=== PATIENT | female | born 1990 | race Caucasian/White ===

== ENCOUNTER → 2024-08-17 13:41 | Outpatient (BNVA) | payer BC, SELFPAY | PROVIDERS: Visit Provider Nurse Practitioner Women's Health | DX: N91.2 Amenorrhea, unspecified (principal) | CPT/HCPCS: 81025 ==

== ENCOUNTER → 2024-09-06 09:25 | Outpatient (BNVA) | payer BC, SELFPAY | PROVIDERS: Visit Provider Nurse Practitioner Women's Health | DX: O26.891 Other specified pregnancy related conditions, first trimester (principal); Z3A.13 13 weeks gestation of pregnancy | CPT/HCPCS: 76815 ==

== ENCOUNTER → 2024-09-12 14:08 | Outpatient (BNVA) | payer BC, MEDICAID, SELFPAY | PROVIDERS: Visit Provider Nurse Practitioner Women's Health | DX: O09.899 Supervision of other high risk pregnancies, unspecified trimester (principal); O99.810 Abnormal glucose complicating pregnancy | CPT/HCPCS: 80307; 83036; 84315; 85025; 86592; 86762; 86803; 86850; 86900; 87086; 87340; 87806 ==

== ENCOUNTER → 2024-10-11 09:26 | Outpatient (BNVA) | payer BC, MEDICAID, SELFPAY | PROVIDERS: Visit Provider Nurse Practitioner Women's Health | DX: O26.892 Other specified pregnancy related conditions, second trimester (principal); Z3A.19 19 weeks gestation of pregnancy | CPT/HCPCS: 76805 ==

== ENCOUNTER → 2024-11-09 12:51 | Outpatient (BNVA) | payer BC, MEDICAID, SELFPAY | PROVIDERS: Visit Provider Obstetrics & Gynecology | DX: O09.899 Supervision of other high risk pregnancies, unspecified trimester (principal); Z3A.00 Weeks of gestation of pregnancy not specified | CPT/HCPCS: 84315; 87491; 87591; 87624; 87661 ==

== ENCOUNTER → 2024-11-12 11:00 | Outpatient (BNVA) | payer BC, MEDICAID, SELFPAY | PROVIDERS: Visit Provider Obstetrics & Gynecology | DX: O09.522 Supervision of elderly multigravida, second trimester (principal); Z3A.00 Weeks of gestation of pregnancy not specified; Z87.59 Personal history of other complications of pregnancy, childbirth and the puerperium | CPT/HCPCS: 82950 ==

== ENCOUNTER → 2024-12-12 09:35 | Outpatient (BNVA) | payer BC, MEDICAID, SELFPAY | PROVIDERS: Visit Provider Nurse Practitioner Women's Health | DX: O09.899 Supervision of other high risk pregnancies, unspecified trimester (principal); N39.0 Urinary tract infection, site not specified; A49.9 Bacterial infection, unspecified; Z3A.00 Weeks of gestation of pregnancy not specified | CPT/HCPCS: 76816; 84315; 85025; 87086 ==

== ENCOUNTER → 2024-12-20 08:45 | Outpatient (BNVA) | payer BC, MEDICAID, SELFPAY | PROVIDERS: Visit Provider Nurse Practitioner Women's Health | DX: O09.899 Supervision of other high risk pregnancies, unspecified trimester (principal); Z3A.00 Weeks of gestation of pregnancy not specified | CPT/HCPCS: 84315 ==

== ENCOUNTER → 2025-01-03 08:53 | Outpatient (BNVA) | payer BC, MEDICAID, SELFPAY | PROVIDERS: Visit Provider Nurse Practitioner Women's Health | DX: Z36.9 Encounter for antenatal screening, unspecified (principal) | CPT/HCPCS: 76816; 84315 ==

== ENCOUNTER → 2025-02-04 09:14 | Outpatient (BNVA) | payer BC, MEDICAID, SELFPAY | PROVIDERS: Visit Provider Obstetrics & Gynecology | DX: O26.893 Other specified pregnancy related conditions, third trimester (principal); Z3A.36 36 weeks gestation of pregnancy | CPT/HCPCS: 76816; 84315; 87081 ==

== ENCOUNTER → 2025-02-13 15:15 | Outpatient (BNVA) | payer BC, MEDICAID, SELFPAY | PROVIDERS: Visit Provider Obstetrics & Gynecology | DX: O09.522 Supervision of elderly multigravida, second trimester (principal); O09.899 Supervision of other high risk pregnancies, unspecified trimester | CPT/HCPCS: 84315 ==

== ENCOUNTER 2025-02-20 15:54 | Inpatient (IN) | payer BC, MEDICAID, SELFPAY ==
[2025-02-20] VITALS (28 sets, daily range): BP systolic 114–148; BP diastolic 62–84; PULSE 61–84; RESP 16–18; BMI 29.9
[2025-02-20 16:37] LABS: Basophils % 0.3 %; Eosinophils % 0.3 %; Lymphocytes # 3.4 10^3/uL (0.8-4.8); Lymphocytes % 27.5 %; Mean Corpuscular HGB Conc 33.1 g/dL (30-55); Mean Corpuscular Hemoglobin 29.6 pg (27-33); Mean Corpuscular Volume 89.3 fl (85-98); Mean Platelet Volume 10.8 fL (7.4-10.4); Monocytes # 0.6 10^3/uL (0.2-0.9); Monocytes % 4.7 %; Neutrophils # 8.14 10^3/uL (1.8-7.7); Neutrophils % 66.6 %; Nucleated Red Blood Cells % 0 %; Platelet Count 249 10^3/cmm (157-399); Red Blood Count 3.92 10^6/uL (3.85-5.65); Red Cell Distribution Width 13.4 % (12.1-15.1); White Blood Count 12.24 10^3/uL (3.29-11.43)
[2025-02-20 17:03] LABS: Amphetamines Screen Urine Negative (Negative); Barbiturates Screen Urine Negative (Negative); Benzodiazepines Screen Urine Negative (Negative); Cocaine Screen Urine Negative (Negative); Opiate Screen Urine Negative (Negative); PCP Screen Urine Negative (Negative); THC Screen Urine Negative (Negative)
--- NOTE | 2025-02-20 21:00 | P.HP_ITS ---
Providers/Chief Complaint 2 Admitting Physician: Jaden Elizondo MD Primary COMMERCIAL FOOD INSTRUCTOR: Jaden Elizondo MD Chief Complaint: NST HR TACHY HPI COMMERCIAL FOOD INSTRUCTOR History of Present Illness Michela Nielson is a 34 year old female EDC February 27, 2025 At 39 w 0 d No complications Admitted for induction of labor No c/o + active movements POBHx: x five Present Details : 6 Para: 5 Labs Rubella: Immune RPR: Negative GBS: Negative Medications/Allergies Home Medications ?Medication ?Instructions ?Recorded ?Confirmed ?Last Taken ?Type No Known Home Medications 02/20/2502/03 Unknown History Allergies Allergy/AdvReac Type Severity Reaction Status Date / Time No Known Allergies Allergy Verified 02/20/25 13:03 PFSH COMMERCIAL FOOD INSTRUCTOR 2 PFSH: Medical History No pertinent past medical history neghx:htn,dm,thyroid,dvt/pe PCP: none Surgical History No pertinent past surgical history Family History Denies family history of Ovarian cancer Diabetes Heart disease Breast cancer Hypertension Uterine cancer Thyroid disease Stroke Social History Smoking and tobacco/nicotine status: current every day tobacco/nicotine user (.5 PPD) History History History 2 6 Term 5 0 Miscarriages/Ectopic 0 Living Children 5 Care CHARISSA Calculator 2 Estimated Delivery Date Method Current Current Estimate 02/27/25 Ultrasound #1 39w 1d Other Estimates 03/09/25 LMP (Certain) 37w 5d Specific Issues/Plans * NICOTINE USE- using 1/2ppd * AMA-- will be 34 at time of delivery * GRAND MULTIP * HX MACROSOMIA; likely to be secondary to delivery at 42 weeks Vitals/I&O/Wt Last Vital Signs Pulse 68 02/21/25 05:17 Resp 18 02/20/25 18:05 BP 112/68 02/21/25 05:17 Pulse Ox 98 02/21/25 03:15 O2 Del Method Room Air 02/20/25 15:58 02/20/25 02/20/25 02/21/25 14:59 22:59 06:59 Intake Total 2.00 / 2.00 1355.50 / 1357.50 Balance 2.00 / 2.00 1355.50 / 1357.50 Weight last 48 hrs Weight 202 lb 8 oz Physical Exam 2 Narrative: Weight 202 lbs; 5?9? VS normal General awake, alert Lungs clear Cor RRR Abd: nontender FH 38 cm, cephalic Cervix: 2 cm / 50% / -3 / posterior Ext: no edema External monitor: heart tracing good variability, + accelerations Urinary Catheter Management: Knutson: Cath Placed During This Visit: yes Urinary Catheter Date of Insertion: 02/21/25 Urinary Catheter Time of Insertion: 01:22 Data 02/20/25 16:00 Results Labs OB ([facility]): 2 Obstetrics US 02/04/25 Blood Type A Positive 02/20/25 Antibody Screen Negative 02/20/25 Hct, (36-47) 35.0 % L 02/20/25 Hgb, (11.27-16.99) 11.60 g/dL 02/20/25 Rho(D) Type Rh positive 02/20/25 Plt Count, (157-399) 249 10^3/cmm 02/20/25 Hep Bs Antigen, (Nonreactive) Non-reactive 09/12/24 Hepatitis C Antibody, (Nonreactive) Non-reactive 04/29 Rubella IgG Antibody, (0.0-10.0) > 500.0 IU/mL H 5 RPR, (Nonreactive) Nonreactive 09/12/24 HIV 1&2 Ab & HIV 1 Ag, (Non-Reactiv) Non-reactive 04/29 Glucose 1 Hr 50 gm, (85-140) 120 mg/dL 11/12/24 Hemoglobin A1c, (4.0-6.0) 5.4 % 09/12/24 HCG, Qual, (Negative) Positive H 08/17/24 Urine Opiates Screen, (Negative) Negative ng/mL 5 Ur Barbiturates Screen, (Negative) Negative ng/mL 02/20 Ur Phencyclidine Scrn, (Negative) Negative ng/mL Ur Amphetamines Screen, (Negative) Negative ng/mL 02/20 U Benzodiazepines Scrn, (Negative) Negative ng/mL 02/20 Urine Cocaine Screen, (Negative) Negative ng/mL 5 U Marijuana (THC) Screen, (Negative) Negative ng/mL Micro Urine Specimen 12/12/24 Pap Smear Interpret See note A 11/09/24 A&P Assessment and plan (1) Supervision of other high-risk : 39 w 0 d Fetus reassuring Admit for induction of labor GBS negative Labor management PDMP PDMP Reviewed: Not Reviewed Attestations 2 Medical Necessity Statement*: patient at 39 w 0 d, admit for induction of labor Coding Level of Care Code Acute Code for Chg Fwd Diagnoses Supervision of other high-risk O09.899
[2025-02-20] MEDS: dextrose 5%-lactated ringers 1,000 ML 125 ML IV (21:30)
[2025-02-20] MEDS: oxytocin 30 UNIT/500 ML BAG IV (21:30)
[2025-02-20] MEDS: lactated ringers 1,000 ML 999 ML IV (23:51)
[2025-02-21] VITALS (99 sets, daily range): BP systolic 89–194; BP diastolic 50–104; PULSE 57–112; RESP 16; TEMP 36.3–36.8; O2SAT 94–100
[2025-02-21] MEDS: ROPivacaine syringe 100 MG/50 ML SYRINGE 10 MG EPIDURAL ×3 (00:56→10:47)
--- NOTE | 2025-02-21 01:09 | ANES.PREANE2 ---
Pre-Anesthetic Assessment Height/Weight: Height 1.75 m Weight 91.852 kg Pulse Resp BP Pulse Ox O2 Del Method 65 18 123/66 98 Room Air 02/21/25 01:05 02/20/25 18:05 02/21/25 01:02 02/21/25 01:05 02/20/25 15:58 Preop Diagnosis: Labor epidural Familial anesthetic complications: none Was Beta Santhosh taken within 24 hours: N/A Was Clonidine taken within 24 hours: N/A Social No alcohol Exam alert, oriented x 3, clear to auscultation bilaterally and regular rate & rhythm Airway Cervical ROM: within normal limits Mallampati: Class II Dentition: false Pulmonary None reported CV/HEM None reported None reported Hepatic None reported GI None reported Metabolic None reported Musc/skel None reported Neuropsych None reported Anesthetic Plan ASA status: 2 Anesthesia: Regional (specify below) (epidural) Risk of > 500 ml blood loss (7ml/kg in children): Yes, adequate IV access and fluids planned Medications/Allergies Home Medications ?Medication ?Instructions ?Recorded ?Confirmed ?Last Taken ?Type No Known Home Medications 02/20/25 02/20/25 Unknown History Allergies Allergy/AdvReac Type Severity Reaction Status Date / Time No Known Allergies Allergy Verified 02/20/25 13:03 Current Medications Generic Name Dose Route Start Last Admin Trade Name Hellen PRN Reason Stop Dose Admin Dextrose/Lactated Ringer's 1,000 mls @ 125 mls/hr 02/20/25 16:00 02/21/25 00:50 Dextrose 5%-Lactated Ringers IV 125 mls/hr .Q8H BRADY Infusion Oxytocin 30 unit in 500 mls @ 1 mls/hr 02/20/25 21:15 02/21/25 00:00 Pitocin IV 9 milliunit/min .Q24H BRADY 9 mls/hr Protocol Titration 1 MILLIUNIT/MIN Ropivacaine 100 mg in 50 mls @ 10 mls/hr 02/20/25 23:30 02/21/25 00:56 Naropin Syringe EPIDURAL 10 mls/hr .Q5H BRADY Administration PFSH Anesthesia Medical History No pertinent past medical history neghx:htn,dm,thyroid,dvt/pe PCP: none Surgical History No pertinent past surgical history Family History Denies family history of Ovarian cancer Diabetes Heart disease Breast cancer Hypertension Uterine cancer Thyroid disease Stroke Social History Smoking and tobacco/nicotine status: current every day tobacco/nicotine user (.5 PPD) Female Reproductive History : 6 Data Anesthesia 02/20/25 16:00 Short CBC 02/20/25 Range/Units 16:00 WBC 12.24 H (3.29-11.43) 10^3/uL Hgb 11.60 (11.27-16.99) g/dL Hct 35.0 L (36-47) % MCV 89.3 (85-98) fl Plt Count 249 (157-399) 10^3/cmm Neut % (Auto) 66.6 % Neut # (Auto) 8.14 H (1.8-7.7) 10^3/uL Blood Bank 02/20/25 02/20/25 02/20/25 16:00 19:40 20:52 Blood Type Cancelled Cancelled A Positive Rho(D) Type Cancelled Cancelled Rh positive Antibody Screen Cancelled Cancelled Negative Anesthesia Procedures Epidural Time Out Performed: Yes Consents Signed: Procedure Consent Consent: from patient Lumbar Level: L4-L5 Epidural position: sitting Epidural procedure: sterile prep of area, 1% lidocaine to numb the area, 18 g needle, negative for paresthesia passed, neg for paresthesia, test dose given, 1.5% xylocaine 1:200k epi, 0.2% Ropivacaine bolus ml, placed PCEA, no systemic response, sterile dressing applied, L.U.D. no apparent complications and 0.2% Ropiavacaine @ mls/hr (10)
[2025-02-21] MEDS: dextrose 5%-lactated ringers 1,000 ML 125 ML IV (08:10)
--- NOTE | 2025-02-21 11:35 | PM.DELIVERY ---
Delivery Note: Date of delivery: February 21, 2025 Pre-delivery diagnoses: 39 weeks gestation induction of labor Post-delivery diagnoses: 39 weeks gestation induction of labor vaginal delivery Procedure: induction of labor vaginal delivery Op report anesthesia: Epidural Delivering Physician: Jaden Elizondo MD Estimated blood loss (mL): 300 Findings: , vigorous Cord gases and blood obtained Normal placenta and cord No episiotomy / lacerations EBL: 300 cc No complications Pre-Delivery Course: normal labor course fetus reassuring throughout Delivery: vaginal Post-Delivery Status: good History History History 6 Term 5 0 Miscarriages/Ectopic 0 Living Children 5 A&P Assessment and plan (1) Vaginal delivery: PDMP PDMP Reviewed: Not Reviewed Coding Level of Care Code Acute Code for Chg Fwd Diagnoses Vaginal delivery O80
[2025-02-21] MEDS: ibuprofen 800 mg tablet PO ×2 (15:32→21:00)
[2025-02-21] MEDS: acetaminophen 325 mg Tablet 650 MG PO (15:32)
[2025-02-21] MEDS: docusate sodium 100 mg Capsule PO (21:00)
[2025-02-21 23:48] LABS: Hematocrit 27.4 % (36-47); Mean Corpuscular HGB Conc 33.2 g/dL (30-55); Mean Corpuscular Hemoglobin 29.4 pg (27-33); Mean Corpuscular Volume 88.7 fl (85-98); Mean Platelet Volume 10.5 fL (7.4-10.4); Platelet Count 186 10^3/cmm (157-399); Red Blood Count 3.09 10^6/uL (3.85-5.65); Red Cell Distribution Width 13.3 % (12.1-15.1); White Blood Count 11.72 10^3/uL (3.29-11.43)
[2025-02-22 04:16] VITALS: BP 110/68; PULSE 64; RESP 17; TEMP 36.8; O2SAT 98
[2025-02-22] MEDS: acetaminophen 325 mg Tablet 650 MG PO (05:56)
--- NOTE | 2025-02-22 08:00 | ANE.PACU2 ---
Inpatient post-anesthesia follow up: Airway intact: Yes Vital signs: Temperature 97.7 F Pulse Rate 65 Respiratory Rate 16 Blood Pressure 129/67 Pulse Oximetry 99 Oxygen Delivery Me thod Room Air Oxygen Flow Rate Fraction of Inspir ed Oxygen Hydration adequate: Yes Nausea and vomiting: No Pain level: 1 Mental status: Baseline Epidural Start/End: Epidural Start Date: 02/21/25 Epidural Start Time: 00:45 Epidural End Date: 02/21/25 Epidural End Time: 15:30
[2025-02-22] MEDS: ibuprofen 800 mg tablet PO (09:11)
[2025-02-22] MEDS: docusate sodium 100 mg Capsule PO (09:11)
[2025-02-22] MEDS: PRENATAL VIT NO.130/IRON/FOLIC 1 EACH TABLET PO (09:11)
--- NOTE | 2025-02-22 10:16 | PM.OBGYDC ---
Discharge Providers FEATHER DUSTER WINDER Date of Admission: 02/20/25 15:54 Date of Discharge: 02/22/25 Attending Provider at Admission: Jaden Elizondo MD Attending Provider at Discharge: Jaden Elizondo MD Primary FEATHER DUSTER WINDER: Jaden Elizondo MD Diagnoses at Discharge Discharge Diagnosis (1) Vaginal delivery: Details from hospital stay: 34-year-old female G6, P6 s/p of a viable female after induction of labor at 39 weeks gestation. Patient's delivery and stay were uneventful. Patient denies headaches, blurred vision, shortness of breath or chest pain, no excessive bleeding. Patient is tolerating regular diet, voiding and ambulating in room. Patient is attempting to breast-feed but baby is hesitant to latch on. Therefore she is supplementing with formula. Patient has a 1.5 pack/day smoking history but has decreased down to 4 to 5 cigarettes before delivery and has had none since her hospital admission. She states the cigarette craving has decreased and she intends to continue with cessation. I encouraged patient to stay on track and that she is doing great. Discharge expectations to include no heavy lifting pushing or pulling no sexual intercourse x 6 weeks, and patient encouraged to continue vitamins. Patient verbalizes understanding. Patient plans on tubal sterilization which has been reviewed with her by Dr. Elizondo. Patient will be scheduled after her visit. Status: Acute Reason for Visit Reason for Visit: NST HR TACHY Information Peripartum Data: Infant Delivery Method: Vaginal Physical Exam Back/Pelvis: OTHER: Abdomen?soft, fundus firm 3 cm below umbilicus. Lochia?light rubra. Extremity: COMMON NORMALS: normal to inspection, no clubbing, cyanosis or edema and no calf tenderness Urinary Catheter Management: Knutson: Cath Placed During This Visit: yes, but has since been removed by the nurse Reason for Continuing Indwelling Catheter: Decision to DC Catheter Urinary Catheter Date of Insertion: 02/21/25 Urinary Catheter Time of Insertion: 01:22 Date Urinary Catheter Removed: 02/21/25 Time Urinary Catheter Discontinued: 11:15 History History History 6 Term 6 0 Miscarriages/Ectopic 0 Living Children 6 Discharge Data Studies Completed and Pending Laboratory Results WBC 11.72 10^3/uL (3.29-11.43) H 02/21/25 23:43 RBC 3.09 10^6/uL (3.85-5.65) L 02/21/25 23:43 Hgb 9.10 g/dL (11.27-16.99) L 02/21/25 23:43 Hct 27.4 % (36-47) L 02/21/25 23:43 MCV 88.7 fl (85-98) 02/21/25 23:43 MCH 29.4 pg (27-33) 02/21/25 23:43 MCHC 33.2 g/dL (30-55) 02/21/25 23:43 RDW 13.3 % (12.1-15.1) 02/21/25 23:43 Plt Count 186 10^3/cmm (157-399) 02/21/25 23:43 MPV 10.5 fL (7.4-10.4) H 02/21/25 23:43 Neut % (Auto) 66.6 % 02/20/25 16:00 Lymph % (Auto) 27.5 % 02/20/25 16:00 [place] % (Auto) 4.7 % 02/20/25 16:00 Eos % (Auto) 0.3 % 02/20/25 16:00 Baso % (Auto) 0.3 % 02/20/25 16:00 Neut # (Auto) 8.14 10^3/uL (1.8-7.7) H 02/20/25 16:00 Lymph # (Auto) 3.4 10^3/uL (0.8-4.8) 02/20/25 16:00 [place] # (Auto) 0.6 10^3/uL (0.2-0.9) 02/20/25 16:00 Eos # (Auto) 0.0 10^3/uL (0.0-0.8) 02/20/25 16:00 Baso # (Auto) 0.0 10^3/uL (0.0-0.1) 02/20/25 16:00 Nucleated RBC % (auto) 0 % 02/20/25 16:00 Nucleated RBCs # 0.0 /100WBC 02/20/25 16:00 Urine Opiates Screen Negative ng/mL (Negative) 02/20/25 16:00 Ur Barbiturates Screen Negative ng/mL (Negative) 02/20/25 16:00 Ur Phencyclidine Scrn Negative ng/mL (Negative) 02/20/25 16:00 Ur Amphetamines Screen Negative ng/mL (Negative) 02/20/25 16:00 U Benzodiazepines Scrn Negative ng/mL (Negative) 02/20/25 16:00 Urine Cocaine Screen Negative ng/mL (Negative) 02/20/25 16:00 U Marijuana (THC) Screen Negative ng/mL (Negative) 02/20/25 16:00 Blood Type A Positive 02/20/25 20:52 Rho(D) Type Rh positive 02/20/25 20:52 Antibody Screen Negative 02/20/25 20:52 Vitals Last Vital Signs Temp 98.3 F 02/22/25 04:16 Pulse 64 02/22/25 04:16 Resp 17 02/22/25 04:16 BP 110/68 02/22/25 04:16 Pulse Ox 98 02/22/25 04:16 O2 Del Method Room Air 02/22/25 04:16 Results Labs OB ([facility]): Obstetrics US 02/04/25 Blood Type A Positive 02/20/25 Antibody Screen Negative 02/20/25 Hct, (36-47) 27.4 % L 02/21/25 Hgb, (11.27-16.99) 9.10 g/dL L 02/21/25 Rho(D) Type Rh positive 02/20/25 Plt Count, (157-399) 186 10^3/cmm 02/21/25 Hep Bs Antigen, (Nonreactive) Non-reactive 09/12/24 Hepatitis C Antibody, (Nonreactive) Non-reactive 09/12/24 Rubella IgG Antibody, (0.0-10.0) > 500.0 IU/mL H 09/12/24 RPR, (Nonreactive) Nonreactive 09/12/24 HIV 1&2 Ab & HIV 1 Ag, (Non-Reactiv) Non-reactive 09/12/24 Glucose 1 Hr 50 gm, (85-140) 120 mg/dL 11/12/24 Hemoglobin A1c, (4.0-6.0) 5.4 % 09/12/24 HCG, Qual, (Negative) Positive H 08/17/24 Urine Opiates Screen, (Negative) Negative ng/mL 02/20/25 Ur Barbiturates Screen, (Negative) Negative ng/mL 02/20/25 Ur Phencyclidine Scrn, (Negative) Negative ng/mL 02/20/25 Ur Amphetamines Screen, (Negative) Negative ng/mL 02/20/25 U Benzodiazepines Scrn, (Negative) Negative ng/mL 02/20/25 Urine Cocaine Screen, (Negative) Negative ng/mL 02/20/25 U Marijuana (THC) Screen, (Negative) Negative ng/mL 02/20/25 Micro Urine Specimen 12/12/24 Pap Smear Interpret See note A 11/09/24 Discharge Plan Discharge Patient Disposition: Home Condition: Stable Prescriptions: No Action No Known Home Medications Discharge Orders: Discharge Order (Routine); Ordered 02/22/25 Ordered By: Elizabeth Suggs Referrals: Denise Balderas NP [Nurse Practitioner, [facility]] - 04/04/25 1:00 pm Referral Note: * Your 6 week post op appointment is on 04/04/2025 at 1:00pm Discharge Diet: Regular Discharge Activity: Increase activity as tolerated Patient Instructions: Depression (DC), Bleeding (DC), Preeclampsia and Eclampsia After Delivery (GEN), Hemorrhage (DC), OB Discharge Report, OB Food/Drug Interaction Guide, Opioid Safety, OB Home Care, OB Proud Parent Packet, OB Vaginal Deliveries - [facility] Activity Restrictions/Additional Instructions: No heavy lifting pushing pulling or sexual intercourse x 6 weeks. Patient to continue vitamins with iron x 3 months are for as long as she continues to breast-feed. Assessment: 1. S/p viable female 2. Multigravida 3. Asymptomatic anemia 4. Tobacco abuse during 5. Desiring sterilization (4 to 6 weeks) 6. History of HGSIL 7. History of delivery of macrosomic Plan of Treatment: 1. DC to home today 2. Patient to follow-up in women's clinic in 4 weeks for scheduling of elective sterilization. Discharge Attestations FEATHER DUSTER WINDER Time Spent in Discharge Care*: less than 30 min Coding Level of Care Code Acute Code for Chg Fwd Diagnoses Vaginal delivery O80
[2025-02-22 12:50] VITALS: BP 129/67; PULSE 65; RESP 16; TEMP 36.5; O2SAT 99
== END 2025-02-22 12:50 | disposition home or self-care (01) | DRG 807 ==
LOC: OPOB 15:54 → OBGYN 15:54
PROVIDERS: Admitting Provider Obstetrics & Gynecology; Visit Provider Obstetrics & Gynecology
DX: O99.334 Smoking (tobacco) complicating childbirth (principal); Z37.0 Single live birth; F17.210 Nicotine dependence, cigarettes, uncomplicated; Z3A.39 39 weeks gestation of pregnancy
CPT/HCPCS: 36415; 51702; 59025; 59409; 80306; 84315; 85025; 85027; 86850; 86900; 99211; J2590; J2795; J7120; J7121; J9999

== ENCOUNTER 2025-03-26 06:32 | Day surgery (SDC) | payer BC, MEDICAID, SELFPAY ==
[2025-03-26] VITALS (10 sets, daily range): BP systolic 121–160; BP diastolic 81–95; PULSE 42–84; RESP 10–18; TEMP 36.1–36.6; O2SAT 95–100; BMI 27.3
--- NOTE | 2025-03-26 00:18 | P.HP_ITS ---
Same Day Surgery H&P Indication for Procedure/HPI DATE OF PROCEDURE: March 26, 2025 CHIEF COMPLAINT/INDICATIONFOR SURGICAL PROCEDURE: desires permanent sterilization PREOP DIAGNOSIS: desires permanent sterilization PLANNED PROCEDURE: Operation Date: 03/26/25 08:15 Proposed Procedures p Laparoscopic BILATERAL Salpingectomy 62858 Z30.2(Bilateral) - Jaden Elizondo MD 34 y.o. desires permanent sterilization Medications/Allergies* Home Medications ?Medication ?Instructions ?Recorded ?Confirmed ?Type No Known Home Medications 02/20/25 07/2 09/29 History Allergies/Adverse Reactions Allergy/AdvReac Type Severity Reaction Status Date / Time No Known Allergies Allergy Verified 02/20/25 13:03 Pertinent History/Comorbid Conditions* Medical History (Updated 02/23/25 @ 00:00 by NEFTALI Messina) No pertinent past medical history neghx:htn,dm,thyroid,dvt/pe PCP: none Surgical History (Updated 08/17/24 @ 14:12 by Eliza Rodriguez APN, WHMERRY) No pertinent past surgical history Family History (Updated 08/17/24 @ 08:44 by Devika Valencia [facility]) Denies family history of Ovarian cancer Diabetes Heart disease Breast cancer Hypertension Uterine cancer Thyroid disease Stroke Social History Smoking and tobacco/nicotine status: current every day tobacco/nicotine user (.5 PPD) Pertinent Exam Findings alert, oriented x 3, clear to auscultation bilaterally and regular rate & rhythm Recommendations Surgery/Procedure today Coding Level of Care Code Acute Code for Chg Fwd
[2025-03-26 06:58] LABS: OR HCG Qualitative Urine Negative (Negative)
--- NOTE | 2025-03-26 07:26 | ANES.PREANE2 ---
Pre-Anesthetic Assessment Height/Weight: Height 1.75 m Weight 83.915 kg O2 Del Method Room Air 03/26/25 06:52 Preop Diagnosis: desires permanent sterilization Operation Date: 03/26/25 08:15 Proposed Procedures p Laparoscopic BILATERAL Salpingectomy 14317 Z30.2(Bilateral) - Jaden Elizondo MD Familial anesthetic complications: None Was Beta Santhosh taken within 24 hours: N/A Was Clonidine taken within 24 hours: N/A Last intake: Intake Last Liquid Date 03/25/25 Last Liquid Time 19:00 Last Solid Date 03/25/25 Last Solid Time 17:30 Social No alcohol and No tobacco former smoker, reent quit Exam alert, oriented x 3, clear to auscultation bilaterally and regular rate & rhythm Airway Mallampati: Class II Dentition: other (none) Anesthetic Plan ASA status: 2 Anesthesia: General Risk of > 500 ml blood loss (7ml/kg in children): No Medications/Allergies Home Medications ?Medication ?Instructions ?Recorded ?Confirmed ?Last Taken ?Type No Known Home Medications 02/20/25 03/25/25 Unknown History Allergies Allergy/AdvReac Type Severity Reaction Status Date / Time No Known Allergies Allergy Verified 02/20/25 13:03 [facility] Anesthesia Medical History (Updated 02/23/25 @ 00:00 by NEFTALI Messina) No pertinent past medical history neghx:htn,dm,thyroid,dvt/pe PCP: none Surgical History No pertinent past surgical history Family History Denies family history of Ovarian cancer Diabetes Heart disease Breast cancer Hypertension Uterine cancer Thyroid disease Stroke Social History Smoking and tobacco/nicotine status: current every day tobacco/nicotine user (.5 PPD)
--- NOTE | 2025-03-26 07:38 | W.PM.OPSUD ---
Surgery/Procedure H&P Update DATE OF PROCEDURE: March 26, 2025 DATE H&P PERFORMED: 03/26/25 H&P UPDATE INFORMATION: I have reviewed H&P completed within last 30 days, I have examined patient prior to procedure and No changes to prior documentation PREOP DIAGNOSIS: desires permanent sterilization PLANNED PROCEDURE: Operation Date: 03/26/25 08:15 Proposed Procedures p Laparoscopic BILATERAL Salpingectomy 64659 Z30.2(Bilateral) - Jaden Elizondo MD
--- NOTE | 2025-03-26 10:05 | P.OP_ITS ---
Operative Report Date of procedure: March 26, 2025 Pre-op diagnosis: desires permanent sterilization Post-op diagnosis: same Post-op findings: normal uterus, tubes, and ovaries Procedure done: laparoscopic bilateral salpingectomy Implants: none Specimens removed/disposition: bilateral fallopian tube segments Surgeon: Jaden Elizondo MD Anesthesia: General Estimated blood loss (mL): 5 Complications: none Findings: normal uterus, tubes, and ovaries Condition: stable Disposition: PACU Brief History: 34 y.o. desires permanent sterilization Procedure: Informed consent was obtained. The patient was taken to the OR and placed on the table. General endotracheal anesthesia was induced. The abdomen was then prepped and draped in the usual fashion. A 5 mm subumbilical skin incision was made. A 5 mm trocar with sheath was then inserted into the peritoneal cavity under direct visualization with the laparoscope. After confirming intraperitoneal position, pneumoperitoneum was achieved. Two separate 5 mm incisions were made in the right and left mid- quadrants. 5 mm trocars with sheaths were then inserted into the peritoneal cavity under direct visualization with the laparoscope. The right fallopian tube was then identified to its fimbrial end. Starting at the fimbrial end, the mesosalpinx was then coagulated and cut using the Ligasure. The right fallopian tube was excised and removed via one of the ports. This was sent to pathology. There was no bleeding seen. Similarly, the left fallopian tube was identified to its fimbrial end. The left fallopian tube was excised and removed, sent to pathology. There was no bleeding. All instruments were then removed from the peritoneal cavity after the pneumoperitoneum was allowed to escape. The skin incisions were closed using 3- O chromic in subcuticular fashion. Dermabond was applied. The patient was then placed supine and awakened, taken the the PACU in good condition. Postop condition: stable EBL: 5 cc Complications: none Sponge, needles, and instruments counts correct x two
--- NOTE | 2025-03-26 10:15 | ANE.PACU2 ---
Inpatient post-anesthesia follow up: Airway intact: Yes Vital signs: Temperature 97 F Pulse Rate 47 Respiratory Rate 18 Blood Pressure 130/82 Pulse Oximetry 100 Oxygen Delivery Me thod Room Air Oxygen Flow Rate Fraction of Inspir ed Oxygen Hydration adequate: Yes Nausea and vomiting: No Pain level: 1 Mental status: Baseline
== END 2025-03-26 10:15 | disposition home or self-care (01) ==
PROVIDERS: Anesthesiology; Visit Provider Obstetrics & Gynecology
PROC: (CPT 58661; principal; 2025-03-26 08:05)
DX: Z30.2 Encounter for sterilization (principal); Q50.6 Other congenital malformations of fallopian tube and broad ligament; F17.210 Nicotine dependence, cigarettes, uncomplicated
CPT/HCPCS: 58661; 81025; 88302; A4216; J0131; J1100; J1200; J2250; J2405; J2704; J3010; J3490; J7030; J9999

== ENCOUNTER → 2025-05-13 16:36 | Outpatient (BNVA) | payer BC, MEDICAID, SELFPAY | PROVIDERS: Visit Provider Obstetrics & Gynecology | DX: Z12.4 Encounter for screening for malignant neoplasm of cervix (principal) | CPT/HCPCS: 87624 ==